=== PATIENT | male | born 1970 | race Native Hawaiian/Other Pacific Islander ===

== ENCOUNTER → 2022-12-30 11:37 | Outpatient (REF) | payer OTHER, SELFPAY | LOC: HO.SL 11:37 | PROVIDERS: PCP Physician Assistant; Visit Provider Physician Assistant | DX: G47.33 Obstructive sleep apnea (adult) (pediatric) (principal) | CPT/HCPCS: 95806 ==

== ENCOUNTER → 2022-12-30 12:58 | Outpatient (BNV) | payer OTHER, SELFPAY | PROVIDERS: PCP Physician Assistant; Visit Provider Internal Medicine | DX: G47.33 Obstructive sleep apnea (adult) (pediatric) (principal) | CPT/HCPCS: 95806 ==

== ENCOUNTER 2023-01-20 12:20 | Outpatient (REF) | payer OTHER, SELFPAY ==
--- NOTE | ~2023-01-20 | XR_ITS ---
EXAMINATION: XR KNEE, AP STANDING VIEW, BILATERAL XR KNEE, SUNRISE AND LATERAL VIEWS, BILATERAL CLINICAL INFORMATION: Bilateral knee pain. COMPARISON: 06/19/2022. TECHNIQUE: AP standing, lateral and sunrise views of bilateral knees. FINDINGS: RIGHT KNEE: Small medial marginal and posterior patellar osteophytes with joint space narrowing. Moderate joint effusion. LEFT KNEE: Mild medial joint space narrowing. Moderate joint effusion. Tiny tricompartmental osteophytes. XR/XR knee standing BI IMPRESSION: Redemonstration of moderate degenerative changes right knee. Redemonstration of mild degenerative changes left knee. Moderate bilateral joint effusions.
--- NOTE | ~2023-01-20 | XR_ITS ---
EXAMINATION: XR KNEE, AP STANDING VIEW, BILATERAL XR KNEE, SUNRISE AND LATERAL VIEWS, BILATERAL CLINICAL INFORMATION: Bilateral knee pain. COMPARISON: 06/19/2022. TECHNIQUE: AP standing, lateral and sunrise views of bilateral knees. FINDINGS: RIGHT KNEE: Small medial marginal and posterior patellar osteophytes with joint space narrowing. Moderate joint effusion. LEFT KNEE: Mild medial joint space narrowing. Moderate joint effusion. Tiny tricompartmental osteophytes. XR/XR knee LT 2V IMPRESSION: Redemonstration of moderate degenerative changes right knee. Redemonstration of mild degenerative changes left knee. Moderate bilateral joint effusions.
--- NOTE | ~2023-01-20 | XR_ITS ---
EXAMINATION: XR KNEE, AP STANDING VIEW, BILATERAL XR KNEE, SUNRISE AND LATERAL VIEWS, BILATERAL CLINICAL INFORMATION: Bilateral knee pain. COMPARISON: 06/19/2022. TECHNIQUE: AP standing, lateral and sunrise views of bilateral knees. FINDINGS: RIGHT KNEE: Small medial marginal and posterior patellar osteophytes with joint space narrowing. Moderate joint effusion. LEFT KNEE: Mild medial joint space narrowing. Moderate joint effusion. Tiny tricompartmental osteophytes. XR/XR knee RT 2V IMPRESSION: Redemonstration of moderate degenerative changes right knee. Redemonstration of mild degenerative changes left knee. Moderate bilateral joint effusions.
== END 2023-01-20 12:21 | disposition home or self-care (01) ==
LOC: HO.HOSX 12:20
PROVIDERS: Visit Provider Orthopaedic Surgery
DX: M17.11 Unilateral primary osteoarthritis, right knee (principal)
CPT/HCPCS: 20610; 73560; 73565; J1100

== ENCOUNTER 2023-01-20 12:44 | Outpatient (AMB) | payer OTHER, SELFPAY ==
--- NOTE | 2023-01-20 13:08 | MHC.OFFVIS ---
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 Patient reports that he has had ongoing knee pain for about 3 years now. right > left. No recent injuries, but while in highschool he dislocated the right knee. His pain is mostly felt at the top of the knee. His job requires constant walking and frequent kneeling which increases pain. No hx of injections or surgery. He takes tylenol for his pain which gives mild relief. 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 He complains of pain primarily with prolonged walking, stairs, and kneeling activities. He works at [employer] and says his job keeps him very active and frequently kneeling throughout the day, which is very painful. He says he has a Hx of a knee dislocation in highschool, but he cannot remember which knee. He denies any falls, recent injury, or prior treatment. [facility] Surgical History History of hernia surgery Family History Father Throat cancer HTN (hypertension) Social History Housing: House Alcohol intake: never Patient Tobacco Use Status: Never used Tobacco e-Cigarette/Vaping Use: Never Used Second Hand Smoke Exposure: No service: No Current occupational status: employed Current occupation: [employer] Cognitive needs: No Hearing needs: No Vision needs: Yes (reading glasses) Review of Systems Const All systems reviewed & are unremarkable except as noted in HPI and below Physical Exam Vital Signs: BMI result Body Mass Index 33.6 Const General: no acute distress, alert and awake Orientation/consciousness: patient oriented x3 HEENT Head: Yes normocephalic and Yes atraumatic Eyes EOM: EOMs intact bilaterally Resp Effort & Inspection: normal respiratory effort and able to speak in complete sentences Cardio Jugular venous distension: no JVD Skin General skin exam: turgor normal Rashes: no rashes Neuro General: patient oriented x3 Extrem Other: Right Knee: Moderate effusion TTP medial joint line Prominent medial tibial plateau Full ROM Mild antalgic gait Psych Appearance: grossly normal Affect: normal affect Attitude: cooperative Office Procedures Joint Injection/Drain Joint Injection/Drain Details: Injected 1 mL of Decadron and 3 mL 1% lidocaine and 3 mL of 0.25% Marcaine. Site was prepped using aseptic technique. Patient tolerated the procedure well. Primary Site: right knee Approach Used: anterolateral Coding 62835 - Large joint Procedure code (CPT) selection complete Results Reviewed Results Reviewed: 01/20/23 13:20 BUPivacaine MPF 0.25 % [Sensorcaine-MPF 0.25% 10 ML] 10 ml .ROUTE .STK-MED ONE Lidocaine HCl 2 % MPF [Xylocaine 2 % MPF] 5 ml .ROUTE .STK-MED ONE dexAMETHasone sod phosphate [Decadron] 4 mg .ROUTE .STK-MED ONE I personally reviewed relevant radiographs. Moderate medial compartment OA of the right knee Assessment & Plan Assessment & Plan (1) Osteoarthritis of right knee: Code(s): M17.11 - Unilateral primary osteoarthritis, right knee Plan: This is a 52 year old man with moderate right knee OA. He has pain with daily activity, worse with kneeling, stairs, or prolonged ambulation. He works a physically active job and finds this worsens his knee pain due to kneeling. I discussed his diagnosis and treatment options, including an unloading brace. I injected his right knee today, which he tolerated well. He can follow up prn. Plan Scribed for Jag Louie MD by Viral Fischer, medical chief technician, on 01/20/23 at 1:25 PM, EST. Orders: Orders XR knee LT 2V 01/20/23 M25.569 - Pain in unspecified knee XR knee RT 2V 01/20/23 M25.569 - Pain in unspecified knee XR knee standing BI 01/20/23 M25.569 - Pain in unspecified knee Coding Level of Care Code New Pt Level 4 (50483) Diagnoses Osteoarthritis of right knee M17.11 CPT Codes Coding - 01677 Large joint: 95724 - Large joint ([id number])
[2023-01-20 13:09] VITALS: BMI 33.6
== END 2023-01-20 13:56 | disposition home or self-care (01) ==
PROVIDERS: PCP Physician Assistant; Visit Provider Orthopaedic Surgery
DX: M17.11 Unilateral primary osteoarthritis, right knee (principal)
CPT/HCPCS: 20610; 99204

== ENCOUNTER 2023-03-11 14:03 | Outpatient (AMB) | payer OTHER, SELFPAY ==
[2023-03-11 14:24] VITALS: BP 124/84; PULSE 69; O2SAT 98; BMI 34.4
--- NOTE | 2023-03-11 14:24 | A.OFFVIS_ITS ---
Intake Vital Signs 03/11/23 14:24 Height 5 ft 7.5 in Weight 223 lb BMI 34.4 BP 124/84 Blood Pressure Location Lt brachial Position Sitting Pulse 69 Pulse Source Pulse Oximeter Pulse Oximetry (%) 98 Oxygen Delivery Method Room Air Intake Visit Reasons: Obstructive sleep apnea Intake Note: pt is here as a new patient for NORBERTO, and the water in the chamber is not filling up properly. He really does feel the benefit of the machine. 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 He has history of loud snoring at night and fragmented sleep for as long as he can remember. He came from [place] to [facility] about 5 years ago. He has continue to have the complaint of heavy snoring. His has been complaining and has not been sleeping good because of his snoring. He has been feeling tired and somewhat sleepy during the daytime. Recently he had mentioned this to his primary care physician and thus a home- based sleep study was done, on 12/30/2022. The study was positive for moderately severe obstructive sleep apnea, with total sleep time AHI 31. All his sleep was in supine position. He also had a minimal degree of nocturnal hypoxemia with O2 sat below 88% for 13 minutes. Patient has been provided with the CPAP, and he has been using it for the past 1 month. He feels much better, when he wakes up, he is more energetic during the day. Most importantly he does not snore and his is much happier, sleeping better. He has been only moderately overweight, and has been in good general health. Is being treated for hypertension which is well controlled. He is nonsmoker nondrinker. [facility] Medical History (Updated 03/11/23 @ 15:12 by Dioni Campos MD) NORBERTO on CPAP Retrognathia Obesity (BMI 30-39.9) Surgical History History of hernia surgery Family History Father Throat cancer HTN (hypertension) Social History Housing: House Alcohol intake: never Patient Tobacco Use Status: Never used Tobacco e-Cigarette/Vaping Use: Never Used Second Hand Smoke Exposure: No service: No Current occupational status: employed Current occupation: [employer] Cognitive needs: No Hearing needs: No Vision needs: Yes (reading glasses) Review of Systems Const All systems reviewed & are unremarkable except as noted in HPI and below Eyes Reports no additional complaints ENT Reports no additional complaints Card Denies chest pain, Denies syncope, Denies irregular heart rhythm and Denies leg edema Resp Reports no additional complaints GI Reports no additional complaints Reports no additional complaints Musc Reports myalgias (Mild) Skin/Breast Reports system reviewed and no additional complaints, except as documented Neuro Reports no additional complaints and Denies syncope Psych Reports no additional complaints Endo Reports no additional complaints Physical Exam Vital Signs: Last Vital Signs Pulse 69 03/11/23 14:24 BP 124/84 03/11/23 14:24 Pulse Ox 98 03/11/23 14:24 Oxygen Delivery Method Room Air 03/11/23 14:24 BMI result Body Mass Index 34.4 Const General: healthy appearing, comfortable, no acute distress, alert and awake Orientation/consciousness: patient oriented x3 HEENT Head: Yes normal to inspection General nose exam: No nasal polyps present and No nasal discharge present Face and sinus: Yes sinuses nontender Mouth: oropharynx abnormals (Moderately narrow and crowded, Mallampati class 3) Throat: Yes posterior oropharynx normal and Yes other (He has Retroganthia of the lower jaw.) Eyes General: appearance normal, both eyes and all related structures Neck Neck: Yes normal visual inspection, Yes no lymphadenopathy, Yes trachea midline and Yes no JVD Thyroid: Thyroid normal Chest Chest palpation & inspection: normal inspection of the chest, normal palpation o f entire chest wall and no tenderness Resp Effort & Inspection: normal respiratory effort Auscultation: clear to auscultation bilaterally, no crackles and no wheezes Cardio Palpation: normal PMI Rate: regular rate Rhythm: regular rhythm Heart sounds: no gallops and no murmurs Peripheral pulses: Peripheral pulses 2+ throughout GI Palpation (GI): Soft to palpation, nontender, No hepatosplenomegaly present and no masses Auscultation: normal bowel sounds Back/Spine/Pelvis Thoracic/Lumbar Spine: thoracic and lumbar spine normal to inspection Skin General skin exam: no rashes or lesions noted Neuro General: patient oriented x3 and no focal motor deficits Cranial nerves: Yes CN's II-XII intact bilaterally Extrem General: Yes normal to inspection, Yes no clubbing, cyanosis or edema and Yes no calf tenderness Psych Appearance: grossly normal and well kempt Speech and movement: Normal speech and movement present Results Reviewed Results Reviewed: Compliance report for the last 30 nights is reviewed, he has used 22/30 nights, 73%. Average use per night 4 hours 7 minutes. No significant air leak. The main pressure used is 7.6 and average P 95 is 9.6. Residual AHI only 1.4. Assessment & Plan Assessment & Plan (1) Obesity (BMI 30-39.9): Comment: He is moderately obese with BMI 34.4, This is partly contributing to his sleep apnea. He should watches diet and do daily exercise. It will be beneficial for him to lose about 10 lb of weight. Code(s): E66.9 - Obesity, unspecified (2) Retrognathia: Comment: Has a prominent RETROGANTHIA of the lower jaw, which is the main reason for his sleep apnea. Explained to him, he is probably going to need CPAP permanently. Code(s): M26.19 - Other specified anomalies of jaw-cranial base relationship (3) NORBERTO on CPAP: Comment: He had rather severe obstructive sleep apnea, with minimal degree of nocturnal hypoxemia. Is is being treated very well with the use of CPAP. Patient is happy about the CPAP, seems to be compliant but I encouraged him to use more than 5 hours every night. Discussed about his, humidification mode , advised him to reduce it to a lower level. Code(s): G47.33 - Obstructive sleep apnea (adult) (pediatric) Coding Level of Care Code New Pt Level 3 (05125) Diagnoses Obesity (BMI 30-39.9) E66.9 Retrognathia M26.19 NORBERTO on CPAP G47.33
== END 2023-03-11 15:00 | disposition home or self-care (01) ==
PROVIDERS: PCP Physician Assistant; Visit Provider Internal Medicine
DX: G47.33 Obstructive sleep apnea (adult) (pediatric) (principal); E66.9 Obesity, unspecified; Z68.34 Body mass index [BMI] 34.0-34.9, adult; M26.19 Other specified anomalies of jaw-cranial base relationship
CPT/HCPCS: 99213

== ENCOUNTER → 2023-03-11 14:03 | Outpatient (BNVA) | payer OTHER, SELFPAY | PROVIDERS: PCP Physician Assistant; Visit Provider Internal Medicine ==

== ENCOUNTER 2023-06-10 14:05 | Outpatient (AMB) | payer OTHER, SELFPAY ==
[2023-06-10 14:16] VITALS: BP 130/100; PULSE 78; O2SAT 99; BMI 35.0
--- NOTE | 2023-06-10 14:16 | MHC.OFFVIS ---
Intake Vital Signs 06/10/23 14:16 Height 5 ft 7.5 in Weight 227 lb BMI 35.0 BP 130/100 H Blood Pressure Location Lt brachial Position Sitting Pulse 78 Pulse Source Pulse Oximeter Pulse Oximetry (%) 99 Oxygen Delivery Method Room Air Intake Visit Reasons: Obstructive sleep apnea Intake Note: pt is here for follow up and states he is using the machine and only misses when he does not get to sleep. 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 Allergies aspirin Allergy (Intermediate, Verified 06/10/23 14:41) Swelling diclofenac [From Voltaren] Adverse Reaction (Intermediate, Verified 06/10/23 14:41) Chest Pain Medication List - Last Reconciled 06/10/23 by Dioni Campos MD acetaminophen ER (Tylenol Arthritis Pain) 650 mg PO Q12H 30 days CPAP (CPAP Machine/Device) As directed losartan 100 mg PO DAILY 30 days Do you need a note to return to daycare/school/sports/work: No HPI Obstructive sleep apnea HPI Details THIS 52 YEARS OLD GENTLEMAN WHO IS MODERATELY OBESE BUT HAS PROMINENT RETROGANTHIA OF THE LOWER JAW, IS USING CPAP, AND IS HERE FOR FOLLOW-UP. HE USES CPAP EVERY NIGHT AND SLEEPS WELL. HE ADMITS THAT HIS SLEEP IS MUCH BETTER AND HE IS USES THE CPAP AT LEAST FOR 5-6 HOURS EVERY NIGHT. . DENIES ANY DAYTIME SLEEPINESS HE HAS NO ISSUES WITH THE CPAP DEVICE ARE THE MASK. [facility] Medical History NORBERTO on CPAP Retrognathia Obesity (BMI 30-39.9) Surgical History History of hernia surgery Family History Father Throat cancer HTN (hypertension) Social History Housing: House Alcohol intake: never Patient Tobacco Use Status: Never used Tobacco e-Cigarette/Vaping Use: Never Used Second Hand Smoke Exposure: No service: No Current occupational status: employed Current occupation: [employer] Cognitive needs: No Hearing needs: No Vision needs: Yes (reading glasses) Review of Systems Const All systems reviewed & are unremarkable except as noted in HPI and below Eyes Reports no additional complaints ENT Reports no additional complaints Card Denies chest pain, Denies syncope, Denies irregular heart rhythm and Denies leg edema Resp Reports no additional complaints GI Reports no additional complaints Reports no additional complaints Musc Reports myalgias (Mild) Skin/Breast Reports system reviewed and no additional complaints, except as documented Neuro Reports no additional complaints and Denies syncope Psych Reports no additional complaints Endo Reports no additional complaints Physical Exam Vital Signs: Last Vital Signs Pulse 78 06/10/23 14:16 BP 130/100 H 06/10/23 14:16 Pulse Ox 99 06/10/23 14:16 Oxygen Delivery Method Room Air 06/10/23 14:16 BMI result Body Mass Index 35.0 Const General: healthy appearing, comfortable, no acute distress, alert and awake Orientation/consciousness: patient oriented x3 HEENT Head: Yes normal to inspection General nose exam: No nasal polyps present and No nasal discharge present Face and sinus: Yes sinuses nontender Mouth: oropharynx abnormals (Moderately narrow and crowded, Mallampati class 3) Throat: Yes posterior oropharynx normal and Yes other (He has Retroganthia of the lower jaw.) Eyes General: appearance normal, both eyes and all related structures Neck Neck: Yes normal visual inspection, Yes no lymphadenopathy, Yes trachea midline and Yes no JVD Thyroid: Thyroid normal Chest Chest palpation & inspection: normal inspection of the chest, normal palpation of entire chest wall and no tenderness Resp Effort & Inspection: normal respiratory effort Auscultation: clear to auscultation bilaterally, no crackles and no wheezes Cardio Palpation: normal PMI Rate: regular rate Rhythm: regular rhythm Heart sounds: no gallops and no murmurs Peripheral pulses: Peripheral pulses 2+ throughout GI Palpation (GI): Soft to palpation, nontender, No hepatosplenomegaly present and no masses Auscultation: normal bowel sounds Back/Spine/Pelvis Thoracic/Lumbar Spine: thoracic and lumbar spine normal to inspection Skin General skin exam: no rashes or lesions noted Neuro General: patient oriented x3 and no focal motor deficits Cranial nerves: Yes CN's II-XII intact bilaterally Extrem General: Yes normal to inspection, Yes no clubbing, cyanosis or edema and Yes no calf tenderness Psych Appearance: grossly normal and well kempt Speech and movement: Normal speech and movement present Results Reviewed Results Reviewed: COMPLIANCE REPORT FOR THE LAST 30 NIGHTS IS REVIEWED. HE USED 29/30 NIGHTS. AVERAGE USE IT PER NIGHT IS 5 HOURS 45 MINUTES. P 95 8.8 CM NO AIR LEAK. RESIDUAL AHI 0.1 Assessment & Plan Assessment & Plan (1) Obesity (BMI 30-39.9): Comment: He is moderately obese with BMI 35.0, This is partly contributing to his sleep apnea. Code(s): E66.9 - Obesity, unspecified Plan: DISCUSSED WITH HIM ABOUT THE DIET AND NEED TO LOSE ABOUT 10-12 LB AT LEAST. (2) Retrognathia: Comment: Has a prominent RETROGANTHIA of the lower jaw, which is the main reason for his sleep apnea. Explained to him, he is probably going to need CPAP permanently. Code(s): M26.19 - Other specified anomalies of jaw-cranial base relationship Plan: PATIENT KNOWS ABOUT THIS THERE IS NOT MUCH THAT CAN BE. DONE ABOUT THIS (3) NORBERTO on CPAP: Comment: He had rather severe obstructive sleep apnea, with minimal degree of nocturnal hypoxemia. Is is being treated very well with the use of CPAP. Patient is happy about the CPAP, AND REMAINS VERY COMPLIANT. Code(s): G47.33 - Obstructive sleep apnea (adult) (pediatric) Plan: Commended for excellent compliance and advised to keep on using it every night. Coding Level of Care Code Est Pt Level 3 (05574) Diagnoses Obesity (BMI 30-39.9) E66.9 Retrognathia M26.19 NORBERTO on CPAP G47.33
== END 2023-06-10 14:40 | disposition home or self-care (01) ==
PROVIDERS: PCP Physician Assistant; Visit Provider Internal Medicine
DX: E66.9 Obesity, unspecified (principal); M26.19 Other specified anomalies of jaw-cranial base relationship; G47.33 Obstructive sleep apnea (adult) (pediatric)
CPT/HCPCS: 99213

== ENCOUNTER → 2023-06-10 14:05 | Outpatient (BNVA) | payer OTHER, SELFPAY | PROVIDERS: PCP Physician Assistant; Visit Provider Internal Medicine ==

== ENCOUNTER 2023-12-02 13:43 | Outpatient (AMB) | payer SELFPAY ==
[2023-12-02 13:46] VITALS: BP 140/82; PULSE 76; O2SAT 99; BMI 33.0
--- NOTE | 2023-12-02 13:46 | MHC.OFFVIS ---
Vital Signs 12/02/23 13:46 Height 5 ft 7.5 in Weight 214 lb BMI 33.0 BP 140/82 H Blood Pressure Location Lt brachial Position Sitting Pulse 76 Pulse Source Pulse Oximeter Pulse Oximetry (%) 99 Oxygen Delivery Method Room Air Intake Visit Reasons: Obstructive sleep apnea Intake Note: pt is here for follow up and states he is using cpap every night except when away from home. Information Services Manager Required: No Allergies aspirin Allergy (Intermediate, Verified 12/02/23 14:07) Swelling diclofenac [From Voltaren] Adverse Reaction (Intermediate, Verified 12/02/23 14:07) Chest Pain Medication List - Last Reconciled 12/02/23 by Dioni Campos MD acetaminophen ER (Tylenol Arthritis Pain) 650 mg PO Q12H 30 days CPAP (CPAP Machine/Device) As directed losartan 100 mg PO DAILY 30 days Do you need a note to return to daycare/school/sports/work: No HPI HPI Obstructive sleep apnea: Details: 53 YEARS OLD VERY PLEASANT GENTLEMAN IS A CASE OF OBSTRUCTIVE SLEEP APNEA. HE USES CPAP EVERY NIGHT EXCEPT FOR 2 NIGHTS IN THE MONTH WHEN HE VISITED HIS DAUGHTER. SLEEPS GOOD AND DOES NOT SNORE AT ALL. HE REMAINS VERY ALERT AND ACTIVE DURING THE DAYTIME. HE IS TRYING TO LOSE WEIGHT AND HAS LOST 13 LB IN THE LAST 6 MONTHS. HE HAS NO ISSUE WITH THE MASK OR CPAP DEVICE. [facility] Medical History NORBERTO on CPAP Retrognathia Obesity (BMI 30-39.9) Surgical History History of hernia surgery Family History Father Throat cancer HTN (hypertension) Social History Housing: House Alcohol intake: never Patient Tobacco Use Status: Never used Tobacco e-Cigarette/Vaping Use: Never Used Second Hand Smoke Exposure: No service: No Current occupational status: employed Current occupation: [employer] Cognitive needs: No Hearing needs: No Vision needs: Yes (reading glasses) Review of Systems Const All systems reviewed & are unremarkable except as noted in HPI and below Eyes Reports no additional complaints ENT Reports no additional complaints Card Denies chest pain, Denies syncope, Denies irregular heart rhythm and Denies leg edema Resp Reports no additional complaints GI Reports no additional complaints Reports no additional complaints Musc Reports myalgias (Mild) Skin/Breast Reports system reviewed and no additional complaints, except as documented Neuro Reports no additional complaints and Denies syncope Psych Reports no additional complaints Endo Reports no additional complaints Physical Exam Vital Signs: Last Vital Signs Pulse 76 12/02/23 13:46 BP 140/82 H 12/02/23 13:46 Pulse Ox 99 12/02/23 13:46 Oxygen Delivery Method Room Air 12/02/23 13:46 BMI result Body Mass Index 33.0 Const General: healthy appearing, comfortable, no acute distress, alert and awake Orientation/consciousness: patient oriented x3 HEENT Head: Yes normal to inspection General nose exam: No nasal polyps present and No nasal discharge present Face and sinus: Yes sinuses nontender Mouth: oropharynx abnormals (Moderately narrow and crowded, Mallampati class 3) Throat: Yes posterior oropharynx normal and Yes other (He has Retroganthia of the lower jaw.) Eyes General: appearance normal, both eyes and all related structures Neck Neck: Yes normal visual inspection, Yes no lymphadenopathy, Yes trachea midline and Yes no JVD Thyroid: Thyroid normal Chest Chest palpation & inspection: normal inspection of the chest, normal palpation of entire chest wall and no tenderness Resp Effort & Inspection: normal respiratory effort Auscultation: clear to auscultation bilaterally, no crackles and no wheezes Cardio Palpation: normal PMI Rate: regular rate Rhythm: regular rhythm Heart sounds: no gallops and no murmurs Peripheral pulses: Peripheral pulses 2+ throughout GI Palpation (GI): Soft to palpation, nontender, No hepatosplenomegaly present and no masses Auscultation: normal bowel sounds Back/Spine/Pelvis Thoracic/Lumbar Spine: thoracic and lumbar spine normal to inspection Skin General skin exam: no rashes or lesions noted Neuro General: patient oriented x3 and no focal motor deficits Cranial nerves: Yes CN's II-XII intact bilaterally Extrem General: Yes normal to inspection, Yes no clubbing, cyanosis or edema and Yes no calf tenderness Psych Appearance: grossly normal and well kempt Speech and movement: Normal speech and movement present Results Reviewed Results Reviewed: COMPLIANCE REPORT FOR THE LAST 30 NIGHTS SHOWS THAT HE HAS USED 28/30 NIGHTS. AVERAGE USE IT PER NIGHT 5 HOURS 49 MINUTES. AVERAGE PRESSURE USED IS 8 CM. NO AIR LEAK, RESIDUAL AHI ONLY 0.2 Assessment & Plan Assessment & Plan (1) Obesity (BMI 30-39.9): Comment: He is moderately obese with BMI 33.0, HAS LOST ABOUT 13 LB IN THE LAST 6 MONTHS. Code(s): E66.9 - Obesity, unspecified Category: Medical Plan: Commended for losing weight and advised that his goal should be to bring the weight down to 200 lb. (2) Retrognathia: Comment: Has a prominent RETROGANTHIA of the lower jaw, which is the main reason for his sleep apnea. Code(s): M26.19 - Other specified anomalies of jaw-cranial base relationship Category: Medical Plan: Explained to him, he is probably going to need CPAP permanently. (3) NORBERTO on CPAP: Comment: He had rather severe obstructive sleep apnea, with minimal degree of nocturnal hypoxemia. Is being treated very well with the use of CPAP. Patient is happy about the CPAP, AND REMAINS VERY COMPLIANT. Code(s): G47.33 - Obstructive sleep apnea (adult) (pediatric) Category: Medical Plan: Commended for good compliance and advised to continue using CPAP every night Coding Level of Care Code Est Pt Level 3 (48229) Diagnoses Obesity (BMI 30-39.9) E66.9 Retrognathia M26.19 NORBERTO on CPAP G47.33
== END 2023-12-02 14:10 | disposition home or self-care (01) ==
PROVIDERS: PCP Physician Assistant; Visit Provider Internal Medicine
DX: E66.9 Obesity, unspecified (principal); M26.19 Other specified anomalies of jaw-cranial base relationship; G47.33 Obstructive sleep apnea (adult) (pediatric)
CPT/HCPCS: 99213

== ENCOUNTER → 2023-12-02 13:43 | Outpatient (BNVA) | payer OTHER, SELFPAY | PROVIDERS: PCP Physician Assistant; Visit Provider Internal Medicine ==

== ENCOUNTER 2024-07-05 14:07 | Outpatient (AMB) | payer BC, SELFPAY ==
--- NOTE | 2024-07-05 14:26 | MHC.OFFVIS ---
Vital Signs 07/05/24 14:27 Height 5 ft 7.5 in Weight 218 lb 4.122 oz BMI 33.7 BP 122/84 Blood Pressure Location Lt brachial Pulse 72 Pulse Source Pulse Oximeter Pulse Oximetry (%) 99 Oxygen Delivery Method Room Air Intake Visit Reasons: osvaldo Intake Note: pt is here for sleep apnea, waiting for new supplies Investigative Reporter Required: No Allergies aspirin Allergy (Intermediate, Verified 07/05/24 14:47) Swelling diclofenac [From Voltaren] Adverse Reaction (Intermediate, Verified 07/05/24 14:47) Chest Pain Medication List - Last Reconciled 07/05/24 by Dioni Campos MD acetaminophen ER (Tylenol Arthritis Pain) 650 mg PO Q12H 30 days CPAP (CPAP Machine/Device) As directed losartan 100 mg PO DAILY 30 days Do you need a note to return to daycare/school/sports/work: No HPI HPI osvaldo: Details: This 53 years old gentleman is a case of moderate obesity and obstructive sleep apnea. He is a very regular user of CPAP every night. Sleeps very good and there is no issue with the use of CPAP device. He denies any daytime sleepiness. He is trying to watch his weight but has not lost much since his last visit 6 months ago. [facility] Medical History OSVALDO on CPAP Retrognathia Obesity (BMI 30-39.9) Surgical History History of hernia surgery Family History Father Throat cancer HTN (hypertension) Social History Housing: House Alcohol intake: never Patient Tobacco Use Status: Never used Tobacco e-Cigarette/Vaping Use: Never Used Second Hand Smoke Exposure: No service: No Current occupational status: employed Current occupation: [employer] Cognitive needs: No Hearing needs: No Vision needs: Yes (reading glasses) Review of Systems Const All systems reviewed & are unremarkable except as noted in HPI and below Eyes Reports no additional complaints ENT Reports no additional complaints Card Denies chest pain, Denies syncope, Denies irregular heart rhythm and Denies leg edema Resp Reports no additional complaints GI Reports no additional complaints Reports no additional complaints Musc Reports myalgias (Mild) Skin/Breast Reports system reviewed and no additional complaints, except as documented Neuro Reports no additional complaints and Denies syncope Psych Reports no additional complaints Endo Reports no additional complaints Physical Exam Vital Signs: Last Vital Signs Pulse 72 07/05/24 14:27 BP 122/84 07/05/24 14:27 Pulse Ox 99 07/05/24 14:27 Oxygen Delivery Method Room Air 07/05/24 14:27 BMI result Body Mass Index 33.7 Const General: healthy appearing, comfortable, no acute distress, alert and awake Orientation/consciousness: patient oriented x3 HEENT Head: Yes normal to inspection General nose exam: No nasal polyps present and No nasal discharge present Face and sinus: Yes sinuses nontender Mouth: oropharynx abnormals (Moderately narrow and crowded, Mallampati class 3) Throat: Yes posterior oropharynx normal and Yes other (He has Retroganthia of the lower jaw.) Eyes General: appearance normal, both eyes and all related structures Neck Neck: Yes normal visual inspection, Yes no lymphadenopathy, Yes trachea midline and Yes no JVD Thyroid: Thyroid normal Chest Chest palpation & inspection: normal inspection of the chest, normal palpation of entire chest wall and no tenderness Resp Effort & Inspection: normal respiratory effort Auscultation: clear to auscultation bilaterally, no crackles and no wheezes Cardio Palpation: normal PMI Rate: regular rate Rhythm: regular rhythm Heart sounds: no gallops and no murmurs Peripheral pulses: Peripheral pulses 2+ throughout GI Palpation (GI): Soft to palpation, nontender, No hepatosplenomegaly present and no masses Auscultation: normal bowel sounds Back/Spine/Pelvis Thoracic/Lumbar Spine: thoracic and lumbar spine normal to inspection Skin General skin exam: no rashes or lesions noted Neuro General: patient oriented x3 and no focal motor deficits Cranial nerves: Yes CN's II-XII intact bilaterally Extrem General: Yes normal to inspection, Yes no clubbing, cyanosis or edema and Yes no calf tenderness Psych Appearance: grossly normal and well kempt Speech and movement: Normal speech and movement present Results Reviewed Results Reviewed: Compliance report for the last 30 nights is reviewed. He has used every night except for 2 nights ( when he was visiting his daughter ). AVERAGE USE IT PER NIGHT 6 HOURS 2 MINUTES. PRESSURE USED 8 CM. NO AIR LEAK RESIDUAL AHI ONLY 0.1 Assessment & Plan Assessment & Plan (1) Obesity (BMI 30-39.9): Comment: He is moderately obese with BMI 33.7 Has not been able to lose much weight since his last visit. Code(s): E66.9 - Obesity, unspecified Category: Medical Plan: Encouraged to watch his diet and walk daily. Encouraged to lose about 10 more lb of weight. (2) Retrognathia: Comment: Has a prominent RETROGANTHIA of the lower jaw, which is the main reason for his sleep apnea. Code(s): M26.19 - Other specified anomalies of jaw-cranial base relationship Category: Medical Plan: Patient is aware of this and this is not going to be any change in this condition (3) OSVALDO on CPAP: Comment: He had rather severe obstructive sleep apnea, with minimal degree of nocturnal hypoxemia. Is being treated very well with the use of CPAP. Patient is happy about the CPAP, AND REMAINS VERY COMPLIANT. His sleep quality is much improved. Code(s): G47.33 - Obstructive sleep apnea (adult) (pediatric) Category: Medical Plan: Commended for good compliance and encouraged to keep on using CPAP every night. Coding Level of Care Code Est Pt Level 3 (97030) Diagnoses Obesity (BMI 30-39.9) E66.9 Retrognathia M26.19 OSVALDO on CPAP G47.33
[2024-07-05 14:27] VITALS: BP 122/84; PULSE 72; O2SAT 99; BMI 33.7
== END 2024-07-05 14:51 | disposition home or self-care (01) ==
PROVIDERS: PCP Physician Assistant; Visit Provider Internal Medicine
DX: E66.9 Obesity, unspecified (principal); M26.19 Other specified anomalies of jaw-cranial base relationship; G47.33 Obstructive sleep apnea (adult) (pediatric)
CPT/HCPCS: 99213

== ENCOUNTER 2025-01-03 12:55 | Outpatient (AMB) | payer BC, SELFPAY ==
[2025-01-03 13:23] VITALS: BP 120/80; PULSE 75; RESP 16; O2SAT 96; BMI 32.7
--- NOTE | 2025-01-03 13:23 | A.OFFVIS_ITS ---
Vital Signs 01/03/25 13:23 Height 5 ft 7.5 in Weight 211 lb 10.3 oz BMI 32.7 BP 120/80 Blood Pressure Location Rt brachial Position Sitting Respiration 16 Pulse 75 Pulse Source Pulse Oximeter Pulse Oximetry (%) 96 Oxygen Delivery Method Room Air Intake Visit Reasons: Obstructive sleep apnea Phlebotomist Medical Lab Assistant Required: No Accompanied by: Self / Same As Patient Allergies aspirin Allergy (Intermediate, Verified 01/03/25 13:37) Swelling diclofenac (From Voltaren) Adverse Reaction (Intermediate, Verified 01/03/25 1 3:37) Chest Pain Medication List - Last Reconciled 01/03/25 by Dioni Campos MD acetaminophen ER (Tylenol Arthritis Pain) 650 mg PO Q12H 30 days CPAP (CPAP Machine/Device) As directed losartan 100 mg PO DAILY 30 days Do you need a note to return to daycare/school/sports/work: No HPI HPI Obstructive sleep apnea: Details: YUMIKO is very pleasant 54 years old gentleman, a case of obstructive sleep apnea, is here for his 6 months follow-up. He uses CPAP good, but misses some nights when he is sleeping at his daughter's house. The CPAP device is working good and there is no issue except for some air leak. He has ordered a new strap and already planning to keep it tight. Weight has fluctuated but mostly he is losing a few lb at a time. Generally he is in good health. [facility] Medical History NORBERTO on CPAP Retrognathia Obesity (BMI 30-39.9) Surgical History History of hernia surgery Family History Father Throat cancer HTN (hypertension) Social History Housing: House Alcohol intake: never Patient Tobacco Use Status: Never used Tobacco e-Cigarette/Vaping Use: Never Used Second Hand Smoke Exposure: No service: No Current occupational status: employed Current occupation: [employer] Cognitive needs: No Hearing needs: No Vision needs: Yes (reading glasses) Review of Systems Const All systems reviewed & are unremarkable except as noted in HPI and below Eyes Reports no additional complaints ENT Reports no additional complaints Card Denies chest pain, Denies syncope, Denies irregular heart rhythm and Denies leg edema Resp Reports no additional complaints GI Reports no additional complaints Reports no additional complaints Musc Reports myalgias (Mild) Skin/Breast Reports system reviewed and no additional complaints, except as documented Neuro Reports no additional complaints and Denies syncope Psych Reports no additional complaints Endo Reports no additional complaints Physical Exam Vital Signs: Last Vital Signs Pulse 75 01/03/25 13:23 Resp 16 01/03/25 13:23 BP 120/80 01/03/25 13:23 Pulse Ox 96 01/03/25 13:23 Oxygen Delivery Method Room Air 01/03/25 13:23 BMI result Body Mass Index 32.7 Const General: healthy appearing, comfortable, no acute distress, alert and awake Orientation/consciousness: patient oriented x3 HEENT Head: Yes normal to inspection General nose exam: No nasal polyps present and No nasal discharge present Face and sinus: Yes sinuses nontender Mouth: oropharynx abnormals (Moderately narrow and crowded, Mallampati class 3) Teeth and gingiva: other (He does have retrognathia of the lower jaw. Co ntributing to his NORBERTO) Throat: Yes posterior oropharynx normal Eyes General: appearance normal, both eyes and all related structures Neck Neck: Yes normal visual inspection, Yes no lymphadenopathy, Yes trachea midline and Yes no JVD Thyroid: Thyroid normal Chest Chest palpation & inspection: normal inspection of the chest, normal palpation of entire chest wall and no tenderness Resp Effort & Inspection: normal respiratory effort Auscultation: clear to auscultation bilaterally, no crackles and no wheezes Cardio Palpation: normal PMI Rate: regular rate Rhythm: regular rhythm Heart sounds: no gallops and no murmurs Peripheral pulses: Peripheral pulses 2+ throughout GI Palpation (GI): Soft to palpation, nontender, No hepatosplenomegaly present and no masses Auscultation: normal bowel sounds Back/Spine/Pelvis Thoracic/Lumbar Spine: thoracic and lumbar spine normal to inspection Skin General skin exam: no rashes or lesions noted Neuro General: patient oriented x3 and no focal motor deficits Cranial nerves: Yes CN's II-XII intact bilaterally Extrem General: Yes normal to inspection, Yes no clubbing, cyanosis or edema and Yes no calf tenderness Psych Appearance: grossly normal and well kempt Speech and movement: Normal speech and movement present Results Reviewed Results Reviewed: Compliance report for the last 30 nights is reviewed. He has used 23/30 nights, 76%. Average usage per night 5 hours 6 minute. Average pressure used is 7 to 8 cm. There is some air leak which he is aware of. Residual AHI is only 0.2 Assessment & Plan Assessment & Plan (1) Obesity (BMI 30-39.9): Comment: He is moderately obese with BMI 32.7 Has lost 6 lb since last visit. Code(s): E66.9 - Obesity, unspecified Category: Medical Plan: Advised that he has to be vigilant about his weight. Try to cut down on the portions of meals and try to walk daily . (2) Retrognathia: Comment: Has a prominent RETROGANTHIA of the lower jaw, which is the main reason for his sleep apnea. Code(s): M26.19 - Other specified anomalies of jaw-cranial base relationship Category: Medical Plan: Instructed to lose more weight, on try to keep the BMI below 30 . He is aware of dental deformity and that is going to be the permanent defect (3) NORBERTO on CPAP: Comment: He had rather severe obstructive sleep apnea, with minimal degree of nocturnal hypoxemia. Is being treated very well with the use of CPAP. Patient is happy about the CPAP, AND REMAINS VERY COMPLIANT. His sleep quality is much improved. Code(s): G47.33 - Obstructive sleep apnea (adult) (pediatric) Category: Medical Plan: Advised to keep on using the CPAP every night. Try to tighten the straps to minimize the amount of air leak. Coding Level of Care Code Est Pt Level 3 (06288) Diagnoses Obesity (BMI 30-39.9) E66.9 Retrognathia M26.19 NORBERTO on CPAP G47.33
--- OUTSIDE RECORDS SUMMARY | 2025-01-03 13:53 | XMS_ITS | Clinical Summary ---
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 from Last 3 Months Social History Tobacco Use Types Packs/Day Years Used Date Smoking Tobacco: Never Assessed Sex and Gender Information Value Date Recorded Sex Assigned at Male 12/14/2024 12:55 PM EDT Legal Sex Male 2:05 AM EDT Gender Identity Male 12/14/2024 12:55 PM EDT Sexual Orientation Straight 12/14/2024 12 :55 PM EDT Plan of Treatment Health Maintenance Due Date Last Done Comments CT Colonography 1968 Colonoscopy 1968 Colorectal Cancer Screening 1968 Depression Screening 1968 FIT DNA/Cologuard 1968 FIT 1968 FOBT 1968 HIV Screening 1968 Lipid Panel 1968 SDOH Screening 1968 Sigmoidoscopy 1968 Disability Screening 1968 Alcohol/Substance Use Screening 1980 Tobacco Screening 1980 Hepatitis C Screening 1986 DTaP/Tdap/Td Vaccines (1 - Tdap) 11/12/1987 Hepatitis B Vaccines (1 of 3 - 19+ 3-dose series) 11/12/1987 Pneumococcal Vaccine: 50+ Ye ars (1 of 1 - PCV) 2018 Zoster Vaccines (1 of 2) 2018 COVID-19 Vaccine ( - 2023-2 5 season) 2024 Influenza Vaccine (#1) 2025 RSV Patients and Pa tients Aged 60 years or older (1 - 1-dose 75+ series) 11/12/2043 HIB Vaccines Aged Out No longer eligi ble based on patient's age to complete this topic HPV Vaccines Aged Out No longer eligi ble based on patient's age to complete this topic Hepatitis A Vaccines Aged Out No long er eligible based on patient's age to complete this topic IPV Vaccines Aged Out No longer eligi ble based on patient's age to complete this topic Meningococcal B Vaccine Aged Out No l onger eligible based on patient's age to complete this topic Meningococcal Vaccine Aged Out No dustin ayesha eligible based on patient's age to complete this topic RSV under 20 months Aged Out No longe r eligible based on patient's age to complete this topic Rotavirus Vaccines Aged Out No longer eligible based on patient's age to complete this topic
== END 2025-01-03 13:42 | disposition home or self-care (01) ==
LOC: HO.HPS 12:56
PROVIDERS: PCP Physician Assistant; Visit Provider Internal Medicine
DX: E66.9 Obesity, unspecified (principal); M26.19 Other specified anomalies of jaw-cranial base relationship; G47.33 Obstructive sleep apnea (adult) (pediatric)
CPT/HCPCS: 99213